=== PATIENT | female | born 1955 | race Caucasian/White ===

== ENCOUNTER 2017-06-25 06:18 | Day surgery (SDC) | payer OTHER ==
[2017-06-24 09:06] VITALS: BMI 28.3
[2017-06-25] MEDS ORDERED: Lidocaine 2% w/Epinephrine 1:200K 20 ML VIAL ONE (06:53)
[2017-06-25] MEDS ORDERED: Bupivacaine 0.25% HCL 30 ML VIAL ONE (06:53)
[2017-06-25] MEDS ORDERED: Ketorolac Tromethamine 30 MG/ML VIAL ONE ×2 (07:01→16:26)
[2017-06-25] MEDS ORDERED: Fentanyl 100 MCG/2 ML VIAL ONE (07:10)
[2017-06-25] MEDS ORDERED: HYDROmorphone 0.5 MG/0.5 ML SYRINGE ONE (07:11)
[2017-06-25] MEDS ORDERED: Midazolam HCl 2 mg/2 ml Vial ONE (08:00)
--- NOTE | 2017-06-25 11:10 | PDOC.OP ---
Operative Note - Operative Note Operative Note: PROCEDURE: Left breast excisional biopsy DATE OF PROCEDURE: 06/25/2017 SURGEON: Sanjeev Dumont M.D. REFRIGERATION SUPERVISOR: Greyson Devi MS 3 PREOPERATIVE DIAGNOSES: Multiply recurrent left breast cyst POSTOPERATIVE DIAGNOSIS: Multiply recurrent left breast cyst HISTORY: Ms. Brittny Forte is a 61-year-old woman with a left breast cyst which has been aspirated multiple times and continues to recur. Resection was recommended. Prior cytology has been negative. A preoperative ultrasound an approximately 1 cm cyst in the location of her previous large cyst was noted with an adjacent small cyst. PROCEDURE IN DETAIL: After informed consent was obtained the patient was taken to the operating which is placed in supine position and anesthesia was administered. She was prepped and draped in a standard sterile fashion and the location of the recurrent cyst near the edge of the areola superiorly and somewhat laterally was identified and marked. Local anesthesia was infused the skin and subcutaneous tissue surrounding the cyst and a periareolar incision was made. Dissection was carried down to the area of the cyst and the surrounding tissue dissected free circumferentially. The dominant cyst was palpable within the tissue, although the smaller cyst was not. The specimen was resected and oriented with long lateral, short superior, and looped superficial sutures. The specimen was examined by ultrasound and both cysts were noted to be present within the specimen. The patient's breast was examined and no additional abnormalities were seen. The wound was irrigated and hemostasis obtained using Bovie electrocautery. Additional local anesthesia was infused circumferentially for postoperative pain management. The subcutaneous tissues were reapproximated with 3-0 Monocryl sutures and additional local anesthesia infused into the biopsy cavity. The skin was then closed with a running 4-0 Monocryl subcuticular suture and Dermabond dressings were placed. Once the Dermabond was dry a fluff compression dressing was placed and the patient was taken to the operating room in good condition. Estimated blood loss was minimal. There were no complications. Specimen is left breast tissue with recurrent cyst.
[2017-06-25] MEDS ORDERED: Ondansetron PF 4 MG/2 ML Vial ONE (16:26)
[2017-06-25] MEDS ORDERED: ePHEDrine/0.9% NaCl/PF SYRINGE 50 mg/10 ml ONE (16:26)
[2017-06-25] MEDS ORDERED: PROPOFOL 200 MG/20 ML VIAL ONE (16:26)
[2017-06-25] MEDS ORDERED: PHENYLEPHRINE-NS 100 MCG/ML 10 ML SYRINGE ONE (16:26)
[2017-06-25] MEDS ORDERED: Dexamethasone 20 MG/5 ML VIAL ONE (16:26)
[2017-06-25] MEDS ORDERED: Lidocaine 1% PF 5 ML VIAL ONE (16:26)
== END 2017-06-25 11:45 | disposition home or self-care (01) ==
LOC: SDC 06:18
PROVIDERS: ATTEND Surgery
PROC: 0HBU0ZZ Excision of Left Breast, Open Approach (ICD-10-PCS; principal; 2017-06-25)
DX: N60.32 Fibrosclerosis of left breast (principal); N60.02 Solitary cyst of left breast; I10 Essential (primary) hypertension; G40.409 Other generalized epilepsy and epileptic syndromes, not intractable, without status epilepticus; F32.9 Major depressive disorder, single episode, unspecified; F41.9 Anxiety disorder, unspecified; Z98.891 History of uterine scar from previous surgery
CPT/HCPCS: 88307; J0131; J1100; J1170; J1885; J2001; J2250; J2405; J2704; J3010; S0020

== ENCOUNTER 2018-09-14 08:46 | Outpatient (CLI) | payer OTHER ==
--- NOTE | 2018-09-14 09:52 | MMO ---
Bilateral MAMMO Bilat Screen DDI. CLINICAL HISTORY: Patient is 64 years old and is seen for screening. The patient has the following family history of breast cancer: mother, at age 56; maternal grandmother, at age 60; paternal grandmother, at age 60 and maternal aunt. The patient has no personal history of cancer. The patient has a history of left Excisional Biopsy in May, - benign - CYST REMOVAL. VIEWS: The views performed were: bilateral craniocaudal and bilateral mediolateral oblique. FILMS COMPARED: The present examination has been compared to prior imaging studies performed at [facility] on 09/04/2016, and at [facility] on 08/09/2015 and 08/13/2015. This study has been interpreted with the assistance of computer-aided detection. MAMMOGRAM FINDINGS: There are scattered fibroglandular densities. There are multiple calcifications with grouped or clustered distribution seen in the posterior upper region of the left breast. In the right breast, there are no suspicious masses, calcifications or areas of architectural distortion. IMPRESSION: CALCIFICATIONS IN THE LEFT BREAST REQUIRE ADDITIONAL EVALUATION. SPOT MAGNIFICATION VIEW(S) ARE RECOMMENDED. ACR BI-RADS Category 0 - Incomplete: Need additional imaging evaluation. [facility] will notify the patient of the need for additional imaging services. MAMMOGRAPHY NOTE: 1. A negative mammogram report should not delay a biopsy if a dominant of clinically suspicious mass is present. 2. Approximately 10% to 15% of breast cancers are not detected by mammography. 3. Adenosis and dense breasts may obscure an underlying neoplasm.
== END 2018-09-14 08:47 | disposition home or self-care (01) ==
LOC: SCSMAMMO 08:46
PROVIDERS: ATTEND Family Medicine
DX: Z12.31 Encounter for screening mammogram for malignant neoplasm of breast (principal); Z80.3 Family history of malignant neoplasm of breast; R92.1 Mammographic calcification found on diagnostic imaging of breast
CPT/HCPCS: 77067

== ENCOUNTER 2018-11-18 08:46 | Outpatient (CLI) | payer OTHER ==
--- NOTE | 2018-11-18 09:24 | MMO ---
Left Breast MAMMO Unilat Diag DDI LT+LEON. CLINICAL HISTORY: Patient is 64 years old and is seen for diagnostic exam. The patient has the following family history of breast cancer: mother, at age 56; maternal grandmother, at age 60; paternal grandmother, at age 60 and maternal aunt. The patient has no personal history of cancer. The patient has a history of left Excisional Biopsy in May, - benign - CYST REMOVAL. VIEWS: The views performed were: left craniocaudal spot compression magnification; left mediolateral spot compression magnification; and left mediolateral with tomosynthesis. FILMS COMPARED: The present examination has been compared to prior imaging studies performed at [facility] on 09/14/2018, at [facility] on 09/04/2016, and at [facility] on 08/13/2015. MAMMOGRAM FINDINGS: Additional views show pleomorphic calcifications. IMPRESSION: FINDING IN THE LEFT BREAST IS SUSPICIOUS. A STEREOTACTIC BREAST BIOPSY IS RECOMMENDED. THE RESULTS OF THIS EXAM WERE SENT TO THE PATIENT. ACR BI-RADS Category 4 - Suspicious abnormality - biopsy should be considered MAMMOGRAPHY NOTE: 1. A negative mammogram report should not delay a biopsy if a dominant of clinically suspicious mass is present. 2. Approximately 10% to 15% of breast cancers are not detected by mammography. 3. Adenosis and dense breasts may obscure an underlying neoplasm. Reported by: LILIANA ROSARIO MD Electonically Signed: [id number]
== END 2018-11-18 08:47 | disposition home or self-care (01) ==
LOC: BICMAMMO 08:46
PROVIDERS: ATTEND Family Medicine
DX: R92.1 Mammographic calcification found on diagnostic imaging of breast (principal); Z80.3 Family history of malignant neoplasm of breast; Z91.89 Other specified personal risk factors, not elsewhere classified
CPT/HCPCS: G0279

== ENCOUNTER → 2019-02-14 | Day surgery (SDC) | payer OTHER ==
--- NOTE | 2019-02-14 09:16 | MMO ---
"PRELIMINARY REPORT" STEREOTACTIC GUIDED BIOPSY LEFT BREAST SURGICAL SPECIMEN MAMMOGRAPHY LEFT BREAST BIOPSY DIAGNOSTIC MAMMOGRAM LEFT BREAST POST BIOPSY: HISTORY: Abnormal mammogram. Suspicious microcalcifications. FINDINGS: After explaining the procedure and answering all questions, the microcalcification cluster at the sup erior aspect of left breast was visualized. Sterile technique, buffered local anesthesia, stereotactic guidance, and a superior approach were used to carefully advance a 10-gauge vacuum-mila dawna biopsy needle to the cluster of microcalcifications. Position was confirmed with stereotactic imaging. A total of 9 vacuum-assisted specimens were obtained. Mammographic evaluation of the surgical specimen shows most of the microcalcifications in the tissue. Localization clip was placed in the biopsy bed under stereotactic guidance. Needle was removed. Patient tolerated the procedure well and was eventually dismissed in good condition. Postprocedure mammography shows heterogeneously dense fibroglandular tissue. The localization clip li es immediately superior and medial to the remaining microcalcifications. IMPRESSION: Technically successful stereotactic guided biopsy left breast microcalcifications. Pathology is renettai ng. Transcribed Date/Time: 02/14/2019 9:49 AM
== END ==
LOC: MAMMO 06:48
PROVIDERS: ATTEND Family Medicine
PROC: 0HBU3ZX Excision of Left Breast, Percutaneous Approach, Diagnostic (ICD-10-PCS; principal; 2019-02-14)
DX: D24.2 Benign neoplasm of left breast (principal)
CPT/HCPCS: 19081; 76098; 88305